=== PATIENT | male | born 1970 | race African-American/Black ===

== ENCOUNTER 2018-02-28 18:01 | Inpatient (IN) | payer MEDICAID, OTHER ==
[2018-02-28] MEDS: ONDANSETRON 4 MG INJ IV ×2 (18:34→22:33)
[2018-02-28] MEDS: SOD CHLORIDE 0.9% 1,000 ML IV (18:36)
[2018-02-28 18:44] LABS: ADD MAN DIFF? NO
[2018-02-28 18:50] LABS: BASOPHILS % 0.2 % (0.0-2.0); HEMATOCRIT 44.1 % (42.0-52.0); HEMOGLOBIN 13.9 g/dl (14.0-18.0); LYMPHOCYTES # 0.7 10^3/ul (0.8-2.9); LYMPHOCYTES % 6.7 % (15.0-51.0); MEAN CORPUSCULAR HEMOGLOBIN 24.5 pg (29.0-33.0); MEAN CORPUSCULAR HGB CONC 31.5 g/dl (32.0-37.0); MEAN CORPUSCULAR VOLUME 77.8 fl (82.0-101.0); MEAN PLATELET VOLUME 10.5 fl (7.4-10.4); MONOCYTE # 0.4 10^3/ul (0.3-0.9); MONOCYTES % 3.4 % (0.0-11.0); NEUTROPHIL # 9.8 10^3/ul (1.6-7.5); NEUTROPHILS % 89.3 % (39.0-77.0); PLATELET COUNT 288 10^3/UL (140-415); RED BLOOD COUNT 5.67 10^6/ul (4.70-6.10); RED CELL DISTRIBUTION WIDTH 13.5 % (11.5-14.5)
[2018-02-28 19:10] LABS: PARTIAL THROMBOPLASTIN TIME 24.6 Sec (25.0-35.0); PROTIME 12.2 Sec (11.9-14.9)
[2018-02-28 19:16] LABS: ANION GAP 18 (8-16); BLOOD UREA NITROGEN 15 mg/dl (7-20); CALCIUM 9.8 mg/dl (8.4-10.2); CARBON DIOXIDE 24 mmol/L (21-31); CHLORIDE 102 mmol/L (97-110); CREATININE 0.82 mg/dl (0.61-1.24); GLUCOSE 273 mg/dl (70-220); HDL CHOLESTEROL 52 mg/dl (27-67); POTASSIUM 4.1 mmol/L (3.5-5.1); SODIUM 140 mmol/L (135-144); TRIGLYCERIDES 80 mg/dl (0-149)
[2018-02-28 19:24] LABS: CHOL/HDL RATIO 6.2 RATIO; CHOLESTEROL 326 mg/dl (100-200); LDL CHOLESTEROL,CALCULATED 258 mg/dl
[2018-02-28 19:27] LABS: TROPONIN-I < 0.012 ng/ml (0.000-0.120)
[2018-02-28] MEDS ORDERED: ONDANSETRON 4 MG INJ IV (20:00)
[2018-02-28] MEDS ORDERED: ASPIRIN 81 MG TAB (20:54)
[2018-02-28] MEDS: ASPIRIN 81 MG TAB PO (20:57)
[2018-02-28] MEDS ORDERED: NACL 0.9% 3 ML SYG IV (21:30)
[2018-02-28] MEDS ORDERED: ACETAMINOPHEN 325 MG TAB PO (21:30)
[2018-02-28 21:37] LABS: ETHANOL < 10.0 mg/dl
[2018-02-28 22:16] LABS: THYROID STIMULATING HORMONE 0.386 MIU/L (0.465-4.680)
[2018-02-28] MEDS ORDERED: GLUCAGON 1 MG INJ IM (23:30)
[2018-02-28] MEDS ORDERED: GLUCOSE GEL 15 GRAM TUBE PO ×2 (23:30)
[2018-02-28] MEDS ORDERED: GLUCOSE GEL 15 GRAM TUBE BUCCAL (23:30)
[2018-02-28] MEDS ORDERED: DEXTROSE 50% 50 ML SYRINGE IV ×2 (23:30)
[2018-03-01] MEDS ORDERED: INSULIN ISOPHAN SC
[2018-03-01] MEDS: CALCIUM CARBONATE 500 MG CHEW TAB PO ×5 (00:22→21:35)
[2018-03-01] MEDS: MECLIZINE 25 MG TAB PO ×4 (00:23→21:15)
[2018-03-01] MEDS ORDERED: hydrALAzine 20 MG INJ IV (00:30)
[2018-03-01] MEDS: INSULIN ASP PROT/ASPART (70/30) PEN SC ×2 (00:34→21:00)
[2018-03-01] MEDS: ACCU-CHEK XX (02:00)
[2018-03-01] MEDS: SOD CHLORIDE 0.9% 500 ML IV (03:26)
[2018-03-01 03:29] LABS: ADD UMIC YES; UR ASCORBIC ACID NEGATIVE (NEGATIVE); UR BILIRUBIN (Dip) NEGATIVE (NEGATIVE); UR BLOOD (Dip) NEGATIVE (NEGATIVE); UR CLARITY CLEAR (CLEAR); UR COLOR YELLOW (YELLOW); UR GLUCOSE (Dip) 3+ mg/dL (NEGATIVE); UR KETONES (Dip) 2+ mg/dL (NEGATIVE); UR LEUKOCYTE ESTERASE (Dip) NEGATIVE Leu/ul (NEGATIVE); UR NITRITE (Dip) NEGATIVE (NEGATIVE); UR RBC 0 /HPF (0-5); UR SPECIFIC GRAVITY (Dip) 1.038 (1.003-1.030); UR TOTAL PROTEIN (Dip) 2+ mg/dl (NEGATIVE); UR UROBILINOGEN (Dip) NEGATIVE (NEGATIVE); UR WBC 0 /HPF (0-5)
[2018-03-01 03:42] LABS: AMPHETAMINE/METHAMPHETAMINE Negative (NEGATIVE); BARBITURATES Negative (NEGATIVE); BENZODIAZEPINES Negative (NEGATIVE); CANNABINOIDS Negative (NEGATIVE); COCAINE Negative (NEGATIVE); OPIATES Negative (NEGATIVE)
[2018-03-01 06:10] LABS: ADD MAN DIFF? NO
[2018-03-01 06:20] LABS: BASOPHILS % 0.4 % (0.0-2.0); EOSINOPHILS # 0.1 10^3/ul (0.0-0.5); EOSINOPHILS % 0.4 % (0.0-7.0); HEMATOCRIT 40.4 % (42.0-52.0); HEMOGLOBIN 12.8 g/dl (14.0-18.0); LYMPHOCYTES # 1.7 10^3/ul (0.8-2.9); LYMPHOCYTES % 14.8 % (15.0-51.0); MEAN CORPUSCULAR HEMOGLOBIN 24.8 pg (29.0-33.0); MEAN CORPUSCULAR HGB CONC 31.7 g/dl (32.0-37.0); MEAN CORPUSCULAR VOLUME 78.1 fl (82.0-101.0); MEAN PLATELET VOLUME 10.7 fl (7.4-10.4); MONOCYTE # 0.8 10^3/ul (0.3-0.9); MONOCYTES % 7.3 % (0.0-11.0); NEUTROPHIL # 8.5 10^3/ul (1.6-7.5); NEUTROPHILS % 76.7 % (39.0-77.0); PLATELET COUNT 287 10^3/UL (140-415); RED BLOOD COUNT 5.17 10^6/ul (4.70-6.10); RED CELL DISTRIBUTION WIDTH 13.4 % (11.5-14.5)
[2018-03-01 06:20] LABS: WHITE BLOOD COUNT 11.1 10^3/ul (4.8-10.8)
[2018-03-01 06:56] LABS: IRON 33 ug/dl (35-150)
[2018-03-01 07:00] LABS: FREE T4 (FREE THYROXINE) 1.14 ng/dl (0.64-1.79)
[2018-03-01 07:06] LABS: % IRON SATURATION 12 % SAT (22-52); TOTAL IRON BINDING CAPACITY 266 ug/dl (241-421)
[2018-03-01 07:10] LABS: ALANINE AMINOTRANSFERASE 18 IU/L (13-69); ALBUMIN 3.8 g/dl (3.3-4.9); ALBUMIN/GLOBULIN RATIO 1.05; ALKALINE PHOSPHATASE 91 IU/L (42-121); ANION GAP 14 (8-16); ASPARTATE AMINO TRANSFERASE 18 IU/L (15-46); BILIRUBIN,INDIRECT 0.6 mg/dl (0-1.1); BILIRUBIN,TOTAL 0.6 mg/dl (0.2-1.3); BLOOD UREA NITROGEN 16 mg/dl (7-20); CALCIUM 9.3 mg/dl (8.4-10.2); CARBON DIOXIDE 25 mmol/L (21-31); CHLORIDE 101 mmol/L (97-110); CREATININE 0.77 mg/dl (0.61-1.24); GLUCOSE 241 mg/dl (70-220); MAGNESIUM 1.7 mg/dl (1.7-2.5); SODIUM 136 mmol/L (135-144); TOTAL PROTEIN 7.4 g/dl (6.1-8.1)
[2018-03-01] MEDS: INSULIN ASPART [NOVOLOG] 3 ML PEN SC ×5 (08:18→21:00)
[2018-03-01 08:23] LABS: HEMOGLOBIN A1C > 14.0 % (0-5.9)
[2018-03-01 08:26] LABS: FREE T3 2.66 pg/ml (2.77-5.27)
[2018-03-01] MEDS: ATORVASTATIN 80 MG TAB PO (21:00)
[2018-03-01] MEDS: INSULIN GLARGINE [LANTus] (100 UNITS/ML) SYG SC (21:32)
[2018-03-02] MEDS: ACCU-CHEK XX (02:00)
[2018-03-02 06:14] LABS: ADD MAN DIFF? NO
[2018-03-02 06:21] LABS: BASOPHIL # 0.1 10^3/ul (0.0-0.1); BASOPHILS % 0.6 % (0.0-2.0); EOSINOPHILS # 0.2 10^3/ul (0.0-0.5); EOSINOPHILS % 2.5 % (0.0-7.0); HEMATOCRIT 41.8 % (42.0-52.0); HEMOGLOBIN 13.2 g/dl (14.0-18.0); LYMPHOCYTES # 2.5 10^3/ul (0.8-2.9); LYMPHOCYTES % 26.5 % (15.0-51.0); MEAN CORPUSCULAR HEMOGLOBIN 24.6 pg (29.0-33.0); MEAN CORPUSCULAR HGB CONC 31.6 g/dl (32.0-37.0); MEAN CORPUSCULAR VOLUME 77.8 fl (82.0-101.0); MEAN PLATELET VOLUME 10.4 fl (7.4-10.4); MONOCYTE # 0.7 10^3/ul (0.3-0.9); MONOCYTES % 7.2 % (0.0-11.0); NEUTROPHIL # 5.9 10^3/ul (1.6-7.5); NEUTROPHILS % 62.9 % (39.0-77.0); PLATELET COUNT 262 10^3/UL (140-415); RED BLOOD COUNT 5.37 10^6/ul (4.70-6.10); RED CELL DISTRIBUTION WIDTH 13.5 % (11.5-14.5)
[2018-03-02 06:21] LABS: WHITE BLOOD COUNT 9.4 10^3/ul (4.8-10.8)
[2018-03-02 06:54] LABS: ALBUMIN 3.7 g/dl (3.3-4.9); ANION GAP 13 (8-16); BLOOD UREA NITROGEN 18 mg/dl (7-20); CALCIUM 9.3 mg/dl (8.4-10.2); CARBON DIOXIDE 26 mmol/L (21-31); CHLORIDE 103 mmol/L (97-110); CREATININE 0.88 mg/dl (0.61-1.24); GLUCOSE 264 mg/dl (70-220); MAGNESIUM 1.7 mg/dl (1.7-2.5); PHOSPHORUS 3.9 mg/dl (2.5-4.9); POTASSIUM 4.1 mmol/L (3.5-5.1); SODIUM 138 mmol/L (135-144)
[2018-03-02] MEDS: INSULIN ASPART [NOVOLOG] 3 ML PEN SC ×7 (08:10→20:46)
[2018-03-02] MEDS: DOCUSATE SODIUM 100 MG CAP PO (08:20)
[2018-03-02] MEDS: MECLIZINE 25 MG TAB PO ×3 (08:20→12:21)
[2018-03-02] MEDS: LORAZEPAM 2 MG INJ IV (12:30)
[2018-03-02] MEDS: IODIXANOL LOCM 100 ML BTL (18:16)
[2018-03-02] MEDS: SOD CHLORIDE 0.9% 100 ML (18:16)
[2018-03-02] MEDS: CALCIUM CARBONATE 500 MG CHEW TAB PO ×2 (19:08→21:26)
[2018-03-02] MEDS: POLYETHYLENE GLYCOL 17 GM PACKET PO (19:08)
[2018-03-02] MEDS: FISH OIL 1,000 MG CAP PO (20:29)
[2018-03-02] MEDS: INSULIN GLARGINE [LANTus] (100 UNITS/ML) SYG SC (20:36)
[2018-03-02] MEDS ORDERED: INSULIN ASP PROT/ASPART (70/30) PEN SC (21:00)
[2018-03-03 05:31] LABS: ADD MAN DIFF? NO
[2018-03-03 05:32] LABS: WHITE BLOOD COUNT 8.9 10^3/ul (4.8-10.8)
[2018-03-03 05:32] LABS: BASOPHIL # 0.1 10^3/ul (0.0-0.1); BASOPHILS % 0.8 % (0.0-2.0); EOSINOPHILS # 0.3 10^3/ul (0.0-0.5); EOSINOPHILS % 2.9 % (0.0-7.0); HEMATOCRIT 40.2 % (42.0-52.0); HEMOGLOBIN 12.9 g/dl (14.0-18.0); LYMPHOCYTES # 2.3 10^3/ul (0.8-2.9); MEAN CORPUSCULAR HEMOGLOBIN 24.5 pg (29.0-33.0); MEAN CORPUSCULAR HGB CONC 32.1 g/dl (32.0-37.0); MEAN CORPUSCULAR VOLUME 76.4 fl (82.0-101.0); MEAN PLATELET VOLUME 10.3 fl (7.4-10.4); MONOCYTE # 0.6 10^3/ul (0.3-0.9); MONOCYTES % 6.8 % (0.0-11.0); NEUTROPHIL # 5.6 10^3/ul (1.6-7.5); NEUTROPHILS % 63.3 % (39.0-77.0); PLATELET COUNT 240 10^3/UL (140-415); RED BLOOD COUNT 5.26 10^6/ul (4.70-6.10); RED CELL DISTRIBUTION WIDTH 13.6 % (11.5-14.5)
[2018-03-03 06:26] LABS: ANION GAP 12 (8-16)
[2018-03-03 06:30] LABS: BLOOD UREA NITROGEN 15 mg/dl (7-20); CALCIUM 9.2 mg/dl (8.4-10.2); CARBON DIOXIDE 27 mmol/L (21-31); CHLORIDE 101 mmol/L (97-110); CREATININE 0.77 mg/dl (0.61-1.24); GLUCOSE 263 mg/dl (70-220); PHOSPHORUS 4.2 mg/dl (2.5-4.9); POTASSIUM 3.9 mmol/L (3.5-5.1); SODIUM 136 mmol/L (135-144)
[2018-03-03 06:31] LABS: ALBUMIN 3.5 g/dl (3.3-4.9); MAGNESIUM 1.7 mg/dl (1.7-2.5)
[2018-03-03] MEDS: INSULIN ASPART [NOVOLOG] 3 ML PEN SC ×7 (07:49→20:36)
[2018-03-03] MEDS: MECLIZINE 25 MG TAB PO (08:22)
[2018-03-03] MEDS: CALCIUM CARBONATE 500 MG CHEW TAB PO ×2 (08:22→18:04)
[2018-03-03] MEDS: FERROUS SULFATE (EC) 325 MG TAB PO (08:22)
[2018-03-03] MEDS: ASPIRIN 81 MG TAB PO (08:22)
[2018-03-03] MEDS: FISH OIL 1,000 MG CAP PO ×2 (08:23→20:31)
[2018-03-03] MEDS ORDERED: CHOLECALCIFEROL 2,000 UNIT CAP PO (09:00)
[2018-03-03 09:47] LABS: HIV 1&2 ANTIBODY NEGATIVE (NEGATIVE)
[2018-03-03] MEDS: ERGOCALCIFEROL 50,000 UNIT CAP PO (11:32)
[2018-03-03] MEDS: SENNA/DOCUSATE NA (8.6MG/50MG) TAB PO ×2 (13:15→20:31)
[2018-03-03 15:39] LABS: RAPID PLASMA REAGIN NONREACTIVE (NR)
[2018-03-03] MEDS: INSULIN GLARGINE [LANTus] (100 UNITS/ML) SYG SC (20:36)
[2018-03-04 06:04] LABS: ADD MAN DIFF? NO
[2018-03-04 06:07] LABS: BASOPHIL # 0.1 10^3/ul (0.0-0.1); BASOPHILS % 0.6 % (0.0-2.0); EOSINOPHILS # 0.3 10^3/ul (0.0-0.5); EOSINOPHILS % 3.8 % (0.0-7.0); HEMATOCRIT 40.3 % (42.0-52.0); HEMOGLOBIN 12.9 g/dl (14.0-18.0); LYMPHOCYTES # 2.1 10^3/ul (0.8-2.9); LYMPHOCYTES % 23.7 % (15.0-51.0); MEAN CORPUSCULAR HEMOGLOBIN 24.9 pg (29.0-33.0); MEAN CORPUSCULAR VOLUME 77.8 fl (82.0-101.0); MEAN PLATELET VOLUME 10.3 fl (7.4-10.4); MONOCYTE # 0.5 10^3/ul (0.3-0.9); NEUTROPHIL # 5.9 10^3/ul (1.6-7.5); NEUTROPHILS % 65.6 % (39.0-77.0); PLATELET COUNT 233 10^3/UL (140-415); RED BLOOD COUNT 5.18 10^6/ul (4.70-6.10); RED CELL DISTRIBUTION WIDTH 13.2 % (11.5-14.5)
[2018-03-04 06:52] LABS: ALBUMIN 3.5 g/dl (3.3-4.9); ANION GAP 14 (8-16); BLOOD UREA NITROGEN 18 mg/dl (7-20); CALCIUM 9.3 mg/dl (8.4-10.2); CARBON DIOXIDE 27 mmol/L (21-31); CHLORIDE 100 mmol/L (97-110); CREATININE 0.89 mg/dl (0.61-1.24); GLUCOSE 220 mg/dl (70-220); MAGNESIUM 1.7 mg/dl (1.7-2.5); PHOSPHORUS 4.9 mg/dl (2.5-4.9); SODIUM 137 mmol/L (135-144)
[2018-03-04] MEDS: INSULIN ASPART [NOVOLOG] 3 ML PEN SC ×7 (08:28→21:00)
[2018-03-04] MEDS: FERROUS SULFATE (EC) 325 MG TAB PO (08:30)
[2018-03-04] MEDS: ASPIRIN 81 MG TAB PO (08:30)
[2018-03-04] MEDS: AMLODIPINE 5 MG TAB PO (08:30)
[2018-03-04] MEDS: FISH OIL 1,000 MG CAP PO (08:30)
[2018-03-04] MEDS: LISINOPRIL 10 MG TAB PO (08:31)
[2018-03-04] MEDS: BISACODYL (EC) 5 MG TAB PO (08:34)
[2018-03-04] MEDS: SENNA/DOCUSATE NA (8.6MG/50MG) TAB PO ×2 (08:35→21:00)
[2018-03-04] MEDS ORDERED: CHOLECALCIFEROL 2,000 UNIT CAP PO (09:00)
[2018-03-04] MEDS: MECLIZINE 25 MG TAB PO (11:26)
[2018-03-04] MEDS: LINAGLIPTIN 5 MG TABLET PO (16:00)
[2018-03-04] MEDS: metFORMIN 500 MG TAB PO (17:46)
[2018-03-04] MEDS: ATORVASTATIN 80 MG TAB PO ×2 (20:28→20:39)
[2018-03-04] MEDS: INSULIN GLARGINE [LANTus] (100 UNITS/ML) SYG SC (20:30)
[2018-03-05 07:06] LABS: ADD MAN DIFF? NO
[2018-03-05 07:11] LABS: BASOPHIL # 0.1 10^3/ul (0.0-0.1); BASOPHILS % 0.7 % (0.0-2.0); EOSINOPHILS # 0.3 10^3/ul (0.0-0.5); EOSINOPHILS % 3.8 % (0.0-7.0); HEMOGLOBIN 12.7 g/dl (14.0-18.0); LYMPHOCYTES # 2.4 10^3/ul (0.8-2.9); LYMPHOCYTES % 27.1 % (15.0-51.0); MEAN CORPUSCULAR HEMOGLOBIN 24.6 pg (29.0-33.0); MEAN CORPUSCULAR HGB CONC 31.8 g/dl (32.0-37.0); MEAN CORPUSCULAR VOLUME 77.5 fl (82.0-101.0); MEAN PLATELET VOLUME 10.6 fl (7.4-10.4); MONOCYTE # 0.6 10^3/ul (0.3-0.9); MONOCYTES % 6.5 % (0.0-11.0); NEUTROPHIL # 5.6 10^3/ul (1.6-7.5); NEUTROPHILS % 61.6 % (39.0-77.0); PLATELET COUNT 246 10^3/UL (140-415); RED BLOOD COUNT 5.16 10^6/ul (4.70-6.10); RED CELL DISTRIBUTION WIDTH 13.7 % (11.5-14.5)
[2018-03-05 07:50] LABS: ANION GAP 16 (8-16); BLOOD UREA NITROGEN 15 mg/dl (7-20); CALCIUM 9.3 mg/dl (8.4-10.2); CARBON DIOXIDE 25 mmol/L (21-31); CHLORIDE 100 mmol/L (97-110); CREATININE 0.86 mg/dl (0.61-1.24); GLUCOSE 183 mg/dl (70-220); MAGNESIUM 1.7 mg/dl (1.7-2.5); SODIUM 137 mmol/L (135-144)
[2018-03-05] MEDS: ASPIRIN 81 MG TAB PO (07:58)
[2018-03-05] MEDS: FERROUS SULFATE (EC) 325 MG TAB PO (07:58)
[2018-03-05] MEDS: metFORMIN 500 MG TAB PO (07:58)
[2018-03-05] MEDS: SENNA/DOCUSATE NA (8.6MG/50MG) TAB PO (07:59)
[2018-03-05] MEDS: LINAGLIPTIN 5 MG TABLET PO (08:00)
[2018-03-05] MEDS: INSULIN ASPART [NOVOLOG] 3 ML PEN SC ×6 (08:05→18:08)
[2018-03-05] MEDS: LISINOPRIL 20 MG TAB PO (09:00)
[2018-03-05] MEDS ORDERED: LISINOPRIL 10 MG TAB PO (09:00)
[2018-03-05] MEDS: FISH OIL 1,000 MG CAP PO (10:56)
[2018-03-05 18:31] LABS: HOMOCYSTEINE - CARDIOVASCULAR 9.2 umol/L (<11.4)
[2018-03-06] MEDS ORDERED: LISINOPRIL 10 MG TAB PO (09:00)
[2018-03-10] MEDS ORDERED: ERGOCALCIFEROL 50,000 UNIT CAP PO (15:00)
== END 2018-03-05 18:50 | DRG 66 ==
LOC: E/R 18:01 → 2NE 03-03 17:09 → 6WM 19:53
DX: I63.8 Other cerebral infarction (principal); I10 Essential (primary) hypertension; E11.9 Type 2 diabetes mellitus without complications; E55.9 Vitamin D deficiency, unspecified
CPT/HCPCS: 36415; 70450; 70496; 70498; 70551; 71045; 73620; 80048; 80053; 80061; 80069; 80307; 81001; 81240; 82306; 82607; 82652; 82728; 82962; 83036; 83090; 83540; 83735; 83890; 84100; 84439; 84443; 84481; 84484; 85025; 85300; 85302; 85305; 85610; 85613; 85730; 86147; 86592; 86703; 92610; 93005; 93306; 93880; 96374; 97110; 97116; 97163; 97165; 97530; 97535; 99285-25

== ENCOUNTER 2018-03-05 19:58 | Inpatient (IN) | payer MEDICAID ==
[2018-03-05] MEDS ORDERED: ACETAMINOPHEN 325 MG TAB PO (21:30)
[2018-03-05] MEDS ORDERED: CALCIUM CARBONATE 500 MG CHEW TAB PO (21:30)
[2018-03-05] MEDS ORDERED: BISACODYL (EC) 5 MG TAB PO (21:30)
[2018-03-05] MEDS ORDERED: DEXTROSE 50% 50 ML SYRINGE IV ×2 (22:00)
[2018-03-05] MEDS ORDERED: GLUCOSE GEL 15 GRAM TUBE BUCCAL (22:00)
[2018-03-05] MEDS: INSULIN ASPART [NOVOLOG] 3 ML PEN SC (22:00)
[2018-03-05] MEDS ORDERED: GLUCAGON 1 MG INJ IM (22:00)
[2018-03-05] MEDS ORDERED: POLYETHYLENE GLYCOL 17 GM PACKET PO (22:00)
[2018-03-05] MEDS ORDERED: ONDANSETRON 4 MG INJ IV (22:00)
[2018-03-05] MEDS ORDERED: GLUCOSE GEL 15 GRAM TUBE PO ×2 (22:00)
[2018-03-05] MEDS: FISH OIL 1,000 MG CAP PO (22:15)
[2018-03-05] MEDS: INSULIN GLARGINE [LANTus] (100 UNITS/ML) SYG SC (23:18)
[2018-03-06 06:52] LABS: ADD MAN DIFF? NO
[2018-03-06 06:56] LABS: BASOPHIL # 0.1 10^3/ul (0.0-0.1); BASOPHILS % 0.6 % (0.0-2.0); EOSINOPHILS # 0.3 10^3/ul (0.0-0.5); EOSINOPHILS % 3.1 % (0.0-7.0); HEMATOCRIT 39.6 % (42.0-52.0); HEMOGLOBIN 12.6 g/dl (14.0-18.0); LYMPHOCYTES # 2.2 10^3/ul (0.8-2.9); LYMPHOCYTES % 23.4 % (15.0-51.0); MEAN CORPUSCULAR HEMOGLOBIN 25.3 pg (29.0-33.0); MEAN CORPUSCULAR HGB CONC 31.8 g/dl (32.0-37.0); MEAN CORPUSCULAR VOLUME 79.5 fl (82.0-101.0); MEAN PLATELET VOLUME 10.4 fl (7.4-10.4); MONOCYTE # 0.7 10^3/ul (0.3-0.9); MONOCYTES % 7.1 % (0.0-11.0); NEUTROPHIL # 6.2 10^3/ul (1.6-7.5); NEUTROPHILS % 65.3 % (39.0-77.0); PLATELET COUNT 233 10^3/UL (140-415); RED BLOOD COUNT 4.98 10^6/ul (4.70-6.10); RED CELL DISTRIBUTION WIDTH 13.5 % (11.5-14.5)
[2018-03-06 06:56] LABS: WHITE BLOOD COUNT 9.4 10^3/ul (4.8-10.8)
[2018-03-06] MEDS: INSULIN ASPART [NOVOLOG] 3 ML PEN SC ×7 (07:35→21:00)
[2018-03-06 08:08] LABS: ALANINE AMINOTRANSFERASE 25 IU/L (13-69); ALBUMIN 3.5 g/dl (3.3-4.9); ALBUMIN/GLOBULIN RATIO 0.92; ALKALINE PHOSPHATASE 84 IU/L (42-121); ANION GAP 16 (8-16); ASPARTATE AMINO TRANSFERASE 19 IU/L (15-46); BILIRUBIN,INDIRECT 0.5 mg/dl (0-1.1); BILIRUBIN,TOTAL 0.5 mg/dl (0.2-1.3); BLOOD UREA NITROGEN 15 mg/dl (7-20); CALCIUM 9.4 mg/dl (8.4-10.2); CARBON DIOXIDE 29 mmol/L (21-31); CHLORIDE 100 mmol/L (97-110); GLUCOSE 155 mg/dl (70-220); POTASSIUM 4.7 mmol/L (3.5-5.1); SODIUM 140 mmol/L (135-144); TOTAL PROTEIN 7.3 g/dl (6.1-8.1)
[2018-03-06] MEDS: FISH OIL 1,000 MG CAP PO ×2 (08:46→21:14)
[2018-03-06] MEDS: ASPIRIN 81 MG TAB PO (08:46)
[2018-03-06] MEDS: FERROUS SULFATE (EC) 325 MG TAB PO (08:46)
[2018-03-06] MEDS ORDERED: LIDOCAINE 5% PATCH TD (11:30)
[2018-03-06] MEDS: LISINOPRIL 10 MG TAB PO (14:30)
[2018-03-06] MEDS: INSULIN GLARGINE [LANTus] (100 UNITS/ML) SYG SC (21:35)
[2018-03-06 23:44] LABS: ADD UMIC YES; UR ASCORBIC ACID NEGATIVE (NEGATIVE); UR BILIRUBIN (Dip) NEGATIVE (NEGATIVE); UR BLOOD (Dip) NEGATIVE (NEGATIVE); UR CLARITY CLEAR (CLEAR); UR COLOR YELLOW (YELLOW); UR GLUCOSE (Dip) 1+ mg/dL (NEGATIVE); UR KETONES (Dip) NEGATIVE (NEGATIVE); UR LEUKOCYTE ESTERASE (Dip) NEGATIVE Leu/ul (NEGATIVE); UR NITRITE (Dip) NEGATIVE (NEGATIVE); UR RBC 0 /HPF (0-5); UR SPECIFIC GRAVITY (Dip) 1.016 (1.003-1.030); UR TOTAL PROTEIN (Dip) 1+ mg/dl (NEGATIVE); UR UROBILINOGEN (Dip) 1+ mg/dL (NEGATIVE); UR WBC 0 /HPF (0-5)
[2018-03-07 07:21] LABS: ANION GAP 13 (8-16); BLOOD UREA NITROGEN 16 mg/dl (7-20); CALCIUM 9.2 mg/dl (8.4-10.2); CARBON DIOXIDE 26 mmol/L (21-31); CHLORIDE 104 mmol/L (97-110); CHOL/HDL RATIO 6.6 RATIO; CHOLESTEROL 227 mg/dl (100-200); CREATININE 0.97 mg/dl (0.61-1.24); GLUCOSE 142 mg/dl (70-220); HDL CHOLESTEROL 34 mg/dl (27-67); LDL CHOLESTEROL,CALCULATED 177 mg/dl; POTASSIUM 4.4 mmol/L (3.5-5.1); SODIUM 139 mmol/L (135-144); TRIGLYCERIDES 80 mg/dl (0-149)
[2018-03-07] MEDS: INSULIN ASPART [NOVOLOG] 3 ML PEN SC ×7 (07:35→20:21)
[2018-03-07] MEDS: ASPIRIN 81 MG TAB PO (08:23)
[2018-03-07] MEDS: LISINOPRIL 10 MG TAB PO (08:24)
[2018-03-07] MEDS: FISH OIL 1,000 MG CAP PO ×2 (08:24→20:21)
[2018-03-07] MEDS: FERROUS SULFATE (EC) 325 MG TAB PO (08:24)
[2018-03-07] MEDS: MUPIROCIN 2% 22 GM OINT TOP ×2 (13:42→21:16)
[2018-03-07] MEDS: INSULIN GLARGINE [LANTus] (100 UNITS/ML) SYG SC (20:26)
[2018-03-07] MEDS ORDERED: PATIENT'S OWN MEDICATION PO (21:00)
[2018-03-08] MEDS: INSULIN ASPART [NOVOLOG] 3 ML PEN SC ×7 (08:07→20:42)
[2018-03-08] MEDS: FISH OIL 1,000 MG CAP PO ×2 (08:34→20:34)
[2018-03-08] MEDS: ASPIRIN 81 MG TAB PO (08:34)
[2018-03-08] MEDS: ERGOCALCIFEROL 50,000 UNIT CAP PO (08:34)
[2018-03-08] MEDS: MUPIROCIN 2% 22 GM OINT TOP ×2 (08:34→20:43)
[2018-03-08] MEDS: FERROUS SULFATE (EC) 325 MG TAB PO (08:36)
[2018-03-08] MEDS: LISINOPRIL 10 MG TAB PO (08:37)
[2018-03-08] MEDS: INSULIN GLARGINE [LANTus] (100 UNITS/ML) SYG SC (20:42)
[2018-03-09] MEDS: INSULIN ASPART [NOVOLOG] 3 ML PEN SC ×7 (07:53→20:40)
[2018-03-09] MEDS: FISH OIL 1,000 MG CAP PO ×2 (08:35→20:30)
[2018-03-09] MEDS: ASPIRIN 81 MG TAB PO (08:35)
[2018-03-09] MEDS: FERROUS SULFATE (EC) 325 MG TAB PO (08:41)
[2018-03-09] MEDS: LISINOPRIL 10 MG TAB PO (08:42)
[2018-03-09] MEDS: MUPIROCIN 2% 22 GM OINT TOP ×2 (08:42→21:00)
[2018-03-09] MEDS: INSULIN GLARGINE [LANTus] (100 UNITS/ML) SYG SC (20:40)
[2018-03-10] MEDS: INSULIN ASPART [NOVOLOG] 3 ML PEN SC ×7 (07:35→20:26)
[2018-03-10] MEDS: FISH OIL 1,000 MG CAP PO ×2 (08:33→20:26)
[2018-03-10] MEDS: ASPIRIN 81 MG TAB PO (08:33)
[2018-03-10] MEDS: FERROUS SULFATE (EC) 325 MG TAB PO (08:33)
[2018-03-10] MEDS: LISINOPRIL 10 MG TAB PO (08:34)
[2018-03-10] MEDS: MUPIROCIN 2% 22 GM OINT TOP ×2 (08:34→20:32)
[2018-03-10] MEDS: INSULIN GLARGINE [LANTus] (100 UNITS/ML) SYG SC (20:30)
[2018-03-11] MEDS: LORAZEPAM 2 MG INJ IV (02:31)
[2018-03-11] MEDS ORDERED: IOHEXOL 300MG/ML 150 ML BTL (03:13)
[2018-03-11] MEDS ORDERED: SOD CHLORIDE 0.9% 100 ML (03:13)
== END 2018-03-11 04:14 | disposition short-term general hospital (02) | DRG 57 ==
LOC: VRC 19:58
PROVIDERS: Physical Medicine & Rehabilitation
PROC: F07Z5ZZ Bed Mobility Treatment (ICD-10-PCS; principal; 2018-03-05)
PROC: F08Z2ZZ Grooming/Personal Hygiene Treatment (ICD-10-PCS; 2018-03-05)
PROC: F06Z6ZZ Communicative/Cognitive Integration Skills Treatment (ICD-10-PCS; 2018-03-05)
DX: I69.391 Dysphagia following cerebral infarction (principal); I69.322 Dysarthria following cerebral infarction; R13.10 Dysphagia, unspecified; I10 Essential (primary) hypertension; E11.9 Type 2 diabetes mellitus without complications; E55.9 Vitamin D deficiency, unspecified; E78.00 Pure hypercholesterolemia, unspecified; Z91.14 Patient's other noncompliance with medication regimen; D50.9 Iron deficiency anemia, unspecified
CPT/HCPCS: 71275; 80048; 80053; 80061; 81001; 82962; 85025; 87081; 87086; 92507; 92523; 93005; 97110; 97112; 97116; 97163; 97167; 97530; 97535; 97542

== ENCOUNTER 2018-03-11 05:04 | Inpatient (IN) | payer MEDICAID ==
[2018-03-11] MEDS ORDERED: HEPARIN 1000 UNITS/ML 10 ML INJ IV ×5 (05:30→06:30)
[2018-03-11] MEDS ORDERED: IPRATROPIUM (NEB) 0.5 MG/2.5 ML AMP NEB (06:00)
[2018-03-11] MEDS ORDERED: POLYETHYLENE GLYCOL 17 GM PACKET PO (06:00)
[2018-03-11] MEDS: PANTOPRAZOLE 40 MG INJ IV (06:00)
[2018-03-11] MEDS ORDERED: ONDANSETRON 4 MG INJ IV (06:00)
[2018-03-11 06:08] LABS: ADD MAN DIFF? NO
[2018-03-11 06:12] LABS: WHITE BLOOD COUNT 9.5 10^3/ul (4.8-10.8)
[2018-03-11 06:12] LABS: BASOPHIL # 0.1 10^3/ul (0.0-0.1); BASOPHILS % 0.5 % (0.0-2.0); EOSINOPHILS # 0.2 10^3/ul (0.0-0.5); EOSINOPHILS % 2.5 % (0.0-7.0); HEMATOCRIT 39.5 % (42.0-52.0); HEMOGLOBIN 12.4 g/dl (14.0-18.0); LYMPHOCYTES # 1.9 10^3/ul (0.8-2.9); LYMPHOCYTES % 19.5 % (15.0-51.0); MEAN CORPUSCULAR HEMOGLOBIN 24.4 pg (29.0-33.0); MEAN CORPUSCULAR HGB CONC 31.4 g/dl (32.0-37.0); MEAN CORPUSCULAR VOLUME 77.8 fl (82.0-101.0); MEAN PLATELET VOLUME 10.1 fl (7.4-10.4); MONOCYTE # 0.7 10^3/ul (0.3-0.9); MONOCYTES % 7.3 % (0.0-11.0); NEUTROPHIL # 6.7 10^3/ul (1.6-7.5); NEUTROPHILS % 69.9 % (39.0-77.0); PLATELET COUNT 251 10^3/UL (140-415); RED BLOOD COUNT 5.08 10^6/ul (4.70-6.10); RED CELL DISTRIBUTION WIDTH 13.2 % (11.5-14.5)
[2018-03-11 06:32] LABS: ANION GAP 13 (8-16); BLOOD UREA NITROGEN 13 mg/dl (7-20); CARBON DIOXIDE 26 mmol/L (21-31); CHLORIDE 103 mmol/L (97-110); GLUCOSE 181 mg/dl (70-220); POTASSIUM 4.4 mmol/L (3.5-5.1); SODIUM 138 mmol/L (135-144)
[2018-03-11 06:52] LABS: INR 0.91; PARTIAL THROMBOPLASTIN TIME 32.9 Sec (25.0-35.0); PROTIME 12.3 Sec (11.9-14.9)
[2018-03-11] MEDS: HEPARIN 25000 UNITS/250 ML 250 ML IV (07:33)
[2018-03-11 07:45] LABS: TROPONIN-I 0.546 ng/ml (0.000-0.120)
[2018-03-11] MEDS ORDERED: GLUCOSE GEL 15 GRAM TUBE BUCCAL (08:30)
[2018-03-11] MEDS ORDERED: GLUCAGON 1 MG INJ IM (08:30)
[2018-03-11] MEDS ORDERED: GLUCOSE GEL 15 GRAM TUBE PO ×2 (08:30)
[2018-03-11] MEDS ORDERED: DEXTROSE 50% 50 ML SYRINGE IV ×2 (08:30)
[2018-03-11] MEDS: INSULIN ASPART [NOVOLOG] 3 ML PEN SC ×6 (09:53→21:00)
[2018-03-11] MEDS: FERROUS SULFATE (EC) 325 MG TAB PO (09:54)
[2018-03-11] MEDS: FISH OIL 1,000 MG CAP PO ×2 (09:54→22:37)
[2018-03-11 12:08] LABS: CREATINE KINASE 123 IU/L (23-200)
[2018-03-11 12:21] LABS: CK INDEX 1.9; CK-MB 2.37 ng/ml (0.0-2.4)
[2018-03-11 12:28] LABS: TROPONIN-I 0.395 ng/ml (0.000-0.120)
[2018-03-11] MEDS: HEPARIN 1000 UNITS/ML 10 ML INJ IV (16:00)
[2018-03-11 18:59] LABS: CREATINE KINASE 126 IU/L (23-200)
[2018-03-11 19:11] LABS: CK INDEX 1.8; CK-MB 2.23 ng/ml (0.0-2.4)
[2018-03-11 19:12] LABS: TROPONIN-I 0.324 ng/ml (0.000-0.120)
[2018-03-11] MEDS: ATORVASTATIN 20 MG TAB PO (20:25)
[2018-03-11] MEDS: INSULIN GLARGINE [LANTus] (100 UNITS/ML) SYG SC (20:57)
[2018-03-11] MEDS ORDERED: FISH OIL 1,000 MG CAP PO (21:00)
[2018-03-11] MEDS: SPECIAL NON-STANDARD MEDICATION PO (21:00)
[2018-03-11 22:46] LABS: PARTIAL THROMBOPLASTIN TIME 32.3 Sec (25.0-35.0)
[2018-03-12 01:13] LABS: PARTIAL THROMBOPLASTIN TIME 32.8 Sec (25.0-35.0)
[2018-03-12] MEDS: HEPARIN 1000 UNITS/ML 10 ML INJ IV (01:37)
[2018-03-12] MEDS: ACCUCHECK AT 2AM (Patients on SS coverage) XX ×2 (02:05→23:58)
[2018-03-12] MEDS: PANTOPRAZOLE 40 MG INJ IV (05:38)
[2018-03-12] MEDS: INSULIN ASPART [NOVOLOG] 3 ML PEN SC ×7 (07:35→22:12)
[2018-03-12] MEDS: FERROUS SULFATE (EC) 325 MG TAB PO (08:08)
[2018-03-12] MEDS: FISH OIL 1,000 MG CAP PO ×2 (08:08→22:07)
[2018-03-12] MEDS ORDERED: FISH OIL 1,000 MG CAP PO (09:00)
[2018-03-12] MEDS ORDERED: HYDROCORTISONE 0.5% 28.35 GM OINT TOP (10:30)
[2018-03-12 10:34] LABS: ADD MAN DIFF? NO
[2018-03-12 10:41] LABS: BASOPHILS % 0.4 % (0.0-2.0); EOSINOPHILS # 0.3 10^3/ul (0.0-0.5); HEMATOCRIT 41.9 % (42.0-52.0); HEMOGLOBIN 13.2 g/dl (14.0-18.0); LYMPHOCYTES # 1.4 10^3/ul (0.8-2.9); LYMPHOCYTES % 17.7 % (15.0-51.0); MEAN CORPUSCULAR HEMOGLOBIN 24.6 pg (29.0-33.0); MEAN CORPUSCULAR HGB CONC 31.5 g/dl (32.0-37.0); MEAN CORPUSCULAR VOLUME 78.2 fl (82.0-101.0); MEAN PLATELET VOLUME 10.1 fl (7.4-10.4); MONOCYTE # 0.5 10^3/ul (0.3-0.9); MONOCYTES % 6.7 % (0.0-11.0); NEUTROPHIL # 5.7 10^3/ul (1.6-7.5); NEUTROPHILS % 70.8 % (39.0-77.0); PLATELET COUNT 279 10^3/UL (140-415); RED BLOOD COUNT 5.36 10^6/ul (4.70-6.10); RED CELL DISTRIBUTION WIDTH 13.4 % (11.5-14.5)
[2018-03-12 10:41] LABS: WHITE BLOOD COUNT 8.1 10^3/ul (4.8-10.8)
[2018-03-12 11:00] LABS: ANION GAP 13 (8-16); BLOOD UREA NITROGEN 15 mg/dl (7-20); CALCIUM 9.4 mg/dl (8.4-10.2); CARBON DIOXIDE 30 mmol/L (21-31); CHLORIDE 101 mmol/L (97-110); CREATININE 1.14 mg/dl (0.61-1.24); GLUCOSE 181 mg/dl (70-220); SODIUM 139 mmol/L (135-144)
[2018-03-12 11:25] LABS: PARTIAL THROMBOPLASTIN TIME 79.4 Sec (25.0-35.0)
[2018-03-12 16:45] LABS: PARTIAL THROMBOPLASTIN TIME 75.1 Sec (25.0-35.0)
[2018-03-12] MEDS: HEPARIN 25000 UNITS/250 ML 250 ML IV (16:52)
[2018-03-12] MEDS: ATORVASTATIN 20 MG TAB PO (22:09)
[2018-03-12] MEDS: INSULIN GLARGINE [LANTus] (100 UNITS/ML) SYG SC (22:19)
[2018-03-12] MEDS: HYDROCORTISONE 0.5% 28.35 GM OINT TOP (23:58)
[2018-03-13] MEDS: HEPARIN 25000 UNITS/250 ML 250 ML IV ×2 (04:49→18:16)
[2018-03-13] MEDS: PANTOPRAZOLE (EC) 40 MG TAB PO (04:49)
[2018-03-13 05:40] LABS: ADD MAN DIFF? NO
[2018-03-13 05:41] LABS: WHITE BLOOD COUNT 8.5 10^3/ul (4.8-10.8)
[2018-03-13 05:41] LABS: BASOPHILS % 0.4 % (0.0-2.0); EOSINOPHILS # 0.5 10^3/ul (0.0-0.5); EOSINOPHILS % 5.7 % (0.0-7.0); HEMATOCRIT 38.3 % (42.0-52.0); HEMOGLOBIN 12.1 g/dl (14.0-18.0); LYMPHOCYTES % 23.4 % (15.0-51.0); MEAN CORPUSCULAR HEMOGLOBIN 24.7 pg (29.0-33.0); MEAN CORPUSCULAR HGB CONC 31.6 g/dl (32.0-37.0); MEAN CORPUSCULAR VOLUME 78.3 fl (82.0-101.0); MEAN PLATELET VOLUME 9.9 fl (7.4-10.4); MONOCYTE # 0.7 10^3/ul (0.3-0.9); MONOCYTES % 7.8 % (0.0-11.0); NEUTROPHIL # 5.3 10^3/ul (1.6-7.5); NEUTROPHILS % 62.3 % (39.0-77.0); PLATELET COUNT 269 10^3/UL (140-415); RED BLOOD COUNT 4.89 10^6/ul (4.70-6.10); RED CELL DISTRIBUTION WIDTH 13.4 % (11.5-14.5)
[2018-03-13 06:16] LABS: PARTIAL THROMBOPLASTIN TIME 81.3 Sec (25.0-35.0)
[2018-03-13 06:19] LABS: ANION GAP 12 (8-16); BLOOD UREA NITROGEN 14 mg/dl (7-20); CARBON DIOXIDE 29 mmol/L (21-31); CHLORIDE 103 mmol/L (97-110); CREATININE 1.16 mg/dl (0.61-1.24); GLUCOSE 114 mg/dl (70-220); POTASSIUM 4.5 mmol/L (3.5-5.1); SODIUM 139 mmol/L (135-144)
[2018-03-13] MEDS: INSULIN ASPART [NOVOLOG] 3 ML PEN SC ×7 (07:41→21:00)
[2018-03-13] MEDS: HYDROCORTISONE 0.5% 28.35 GM OINT TOP ×2 (07:44→21:36)
[2018-03-13] MEDS: FERROUS SULFATE (EC) 325 MG TAB PO (08:12)
[2018-03-13] MEDS: FISH OIL 1,000 MG CAP PO ×2 (08:12→21:35)
[2018-03-13] MEDS ORDERED: VITAMIN A & D 5 GM OINT PACKET TOP (17:27)
[2018-03-13] MEDS: ATORVASTATIN 20 MG TAB PO (21:00)
[2018-03-13] MEDS: INSULIN GLARGINE [LANTus] (100 UNITS/ML) SYG SC (21:29)
[2018-03-14 00:04] LABS: B2 GLYCOPROTEIN I AB (IGA) <9 SAU (< OR = 20); B2 GLYCOPROTEIN I AB (IGG) <9 SGU (< OR = 20); B2 GLYCOPROTEIN I AB (IGM) <9 SMU (< OR = 20)
[2018-03-14] MEDS: ACCUCHECK AT 2AM (Patients on SS coverage) XX (01:56)
[2018-03-14] MEDS: PANTOPRAZOLE (EC) 40 MG TAB PO (05:17)
[2018-03-14 06:10] LABS: ADD MAN DIFF? NO
[2018-03-14 06:19] LABS: BASOPHILS % 0.4 % (0.0-2.0); EOSINOPHILS # 0.4 10^3/ul (0.0-0.5); EOSINOPHILS % 5.1 % (0.0-7.0); HEMATOCRIT 38.7 % (42.0-52.0); LYMPHOCYTES % 26.1 % (15.0-51.0); MEAN CORPUSCULAR HEMOGLOBIN 24.4 pg (29.0-33.0); MEAN CORPUSCULAR VOLUME 78.7 fl (82.0-101.0); MEAN PLATELET VOLUME 10.1 fl (7.4-10.4); MONOCYTE # 0.6 10^3/ul (0.3-0.9); MONOCYTES % 7.5 % (0.0-11.0); NEUTROPHIL # 4.6 10^3/ul (1.6-7.5); NEUTROPHILS % 60.8 % (39.0-77.0); PLATELET COUNT 286 10^3/UL (140-415); RED BLOOD COUNT 4.92 10^6/ul (4.70-6.10); RED CELL DISTRIBUTION WIDTH 13.2 % (11.5-14.5)
[2018-03-14 06:19] LABS: WHITE BLOOD COUNT 7.6 10^3/ul (4.8-10.8)
[2018-03-14 06:52] LABS: ANION GAP 13 (8-16); BLOOD UREA NITROGEN 13 mg/dl (7-20); CALCIUM 9.4 mg/dl (8.4-10.2); CARBON DIOXIDE 28 mmol/L (21-31); CHLORIDE 104 mmol/L (97-110); CREATININE 1.12 mg/dl (0.61-1.24); GLUCOSE 118 mg/dl (70-220); POTASSIUM 4.8 mmol/L (3.5-5.1); SODIUM 140 mmol/L (135-144)
[2018-03-14 06:55] LABS: PARTIAL THROMBOPLASTIN TIME 82.3 Sec (25.0-35.0)
[2018-03-14] MEDS: INSULIN ASPART [NOVOLOG] 3 ML PEN SC ×7 (08:00→21:00)
[2018-03-14] MEDS: FERROUS SULFATE (EC) 325 MG TAB PO (08:32)
[2018-03-14] MEDS: HEPARIN 25000 UNITS/250 ML 250 ML IV (08:32)
[2018-03-14] MEDS: FISH OIL 1,000 MG CAP PO ×2 (08:32→21:38)
[2018-03-14] MEDS: HYDROCORTISONE 0.5% 28.35 GM OINT TOP (08:32)
[2018-03-14] MEDS: APIXABAN 5 MG TABLET PO ×2 (13:00→21:38)
[2018-03-14] MEDS: INSULIN GLARGINE [LANTus] (100 UNITS/ML) SYG SC (22:41)
[2018-03-14 23:27] LABS: HEXAGONAL PHASE CONFIRMATION NEGATIVE (NEGATIVE)
[2018-03-15] MEDS: ACCUCHECK AT 2AM (Patients on SS coverage) XX (02:00)
[2018-03-15] MEDS: PANTOPRAZOLE (EC) 40 MG TAB PO ×2 (06:00)
[2018-03-15 06:40] LABS: PARTIAL THROMBOPLASTIN TIME 35.4 Sec (25.0-35.0)
[2018-03-15] MEDS: INSULIN ASPART [NOVOLOG] 3 ML PEN SC ×7 (07:55→21:00)
[2018-03-15] MEDS: FISH OIL 1,000 MG CAP PO ×2 (08:32→20:51)
[2018-03-15] MEDS: FERROUS SULFATE (EC) 325 MG TAB PO (08:32)
[2018-03-15] MEDS: APIXABAN 5 MG TABLET PO ×2 (08:33→20:51)
[2018-03-15 11:55] LABS: CHOL/HDL RATIO 6.6 RATIO; HDL CHOLESTEROL 30 mg/dl (27-67); LDL CHOLESTEROL,CALCULATED 151 mg/dl; TRIGLYCERIDES 86 mg/dl (0-149)
[2018-03-15 11:55] LABS: CHOLESTEROL 198 mg/dl (100-200)
[2018-03-15] MEDS ORDERED: INSULIN GLARGINE [LANTus] (100 UNITS/ML) SYG SC (20:00)
[2018-03-15] MEDS: ERGOCALCIFEROL 50,000 UNIT CAP PO (21:41)
[2018-03-16 20:46] LABS: CARDIOLIPIN AB - IGA <11 APL; CARDIOLIPIN AB - IGG <14 GPL; CARDIOLIPIN AB - IGM <12 MPL
== END 2018-03-15 22:18 | DRG 176 ==
LOC: ICU 05:04 → 6WM 03-12 14:01
PROVIDERS: Internal Medicine
DX: I26.99 Other pulmonary embolism without acute cor pulmonale (principal); I82.403 Acute embolism and thrombosis of unspecified deep veins of lower extremity, bilateral; I69.351 Hemiplegia and hemiparesis following cerebral infarction affecting right dominant side; D68.59 Other primary thrombophilia; I42.9 Cardiomyopathy, unspecified; I10 Essential (primary) hypertension; E11.65 Type 2 diabetes mellitus with hyperglycemia; E78.5 Hyperlipidemia, unspecified; D50.9 Iron deficiency anemia, unspecified; R42 Dizziness and giddiness
CPT/HCPCS: 70450; 80048; 80061; 81240; 82550; 82553; 82962; 83735; 83890; 84100; 84484; 85025; 85610; 85613; 85730; 86146; 86147; 93005; 93306; 93308; 93970; 97116; 97162; 97530

== ENCOUNTER 2018-03-15 22:14 | Inpatient (IN) | payer MEDICAID ==
[2018-03-15] MEDS: INSULIN GLARGINE [LANTus] (100 UNITS/ML) SYG SC (23:32)
[2018-03-15 23:36] LABS: ADD UMIC NO; UR ASCORBIC ACID 20 mg/dL (NEGATIVE); UR BILIRUBIN (Dip) NEGATIVE (NEGATIVE); UR BLOOD (Dip) NEGATIVE (NEGATIVE); UR CLARITY CLEAR (CLEAR); UR COLOR YELLOW (YELLOW); UR GLUCOSE (Dip) NEGATIVE (NEGATIVE); UR KETONES (Dip) NEGATIVE (NEGATIVE); UR LEUKOCYTE ESTERASE (Dip) NEGATIVE Leu/ul (NEGATIVE); UR NITRITE (Dip) NEGATIVE (NEGATIVE); UR SPECIFIC GRAVITY (Dip) 1.015 (1.003-1.030); UR TOTAL PROTEIN (Dip) NEGATIVE (NEGATIVE); UR UROBILINOGEN (Dip) NEGATIVE (NEGATIVE)
[2018-03-15] MEDS ORDERED: ONDANSETRON 4 MG INJ IV (23:45)
[2018-03-15] MEDS ORDERED: INSULIN GLARGINE [LANTus] (100 UNITS/ML) SYG SC (23:45)
[2018-03-15] MEDS ORDERED: HYDROCORTISONE 0.5% 28.35 GM OINT TOP (23:45)
[2018-03-15] MEDS ORDERED: GLUCAGON 1 MG INJ IM (23:45)
[2018-03-15] MEDS ORDERED: POLYETHYLENE GLYCOL 17 GM PACKET PO (23:45)
[2018-03-15] MEDS ORDERED: DEXTROSE 50% 50 ML SYRINGE IV ×2 (23:45)
[2018-03-15] MEDS ORDERED: GLUCOSE GEL 15 GRAM TUBE BUCCAL (23:45)
[2018-03-15] MEDS ORDERED: IPRATROPIUM (NEB) 0.5 MG/2.5 ML AMP NEB (23:45)
[2018-03-15] MEDS ORDERED: GLUCOSE GEL 15 GRAM TUBE PO ×2 (23:45)
[2018-03-16] MEDS: ACCUCHECK AT 2AM (Patients on SS coverage) XX (02:00)
[2018-03-16] MEDS ORDERED: LACTULOSE 30ML CUP PO (05:00)
[2018-03-16] MEDS ORDERED: MAGNESIUM HYDROXIDE 30ML CUP PO (05:00)
[2018-03-16] MEDS ORDERED: BISACODYL 10 MG SUPP PR (05:00)
[2018-03-16] MEDS: PANTOPRAZOLE (EC) 40 MG TAB PO (06:00)
[2018-03-16 06:45] LABS: ADD MAN DIFF? NO
[2018-03-16 06:55] LABS: WHITE BLOOD COUNT 7.3 10^3/ul (4.8-10.8)
[2018-03-16 06:55] LABS: BASOPHILS % 0.4 % (0.0-2.0); EOSINOPHILS # 0.3 10^3/ul (0.0-0.5); EOSINOPHILS % 4.4 % (0.0-7.0); HEMATOCRIT 37.4 % (42.0-52.0); HEMOGLOBIN 11.7 g/dl (14.0-18.0); LYMPHOCYTES # 1.9 10^3/ul (0.8-2.9); LYMPHOCYTES % 25.8 % (15.0-51.0); MEAN CORPUSCULAR HEMOGLOBIN 24.7 pg (29.0-33.0); MEAN CORPUSCULAR HGB CONC 31.3 g/dl (32.0-37.0); MEAN CORPUSCULAR VOLUME 78.9 fl (82.0-101.0); MEAN PLATELET VOLUME 9.7 fl (7.4-10.4); MONOCYTE # 0.5 10^3/ul (0.3-0.9); MONOCYTES % 6.8 % (0.0-11.0); NEUTROPHIL # 4.5 10^3/ul (1.6-7.5); NEUTROPHILS % 62.3 % (39.0-77.0); PLATELET COUNT 277 10^3/UL (140-415); RED BLOOD COUNT 4.74 10^6/ul (4.70-6.10); RED CELL DISTRIBUTION WIDTH 13.1 % (11.5-14.5)
[2018-03-16 07:13] LABS: ALANINE AMINOTRANSFERASE 57 IU/L (13-69); ALBUMIN 3.5 g/dl (3.3-4.9); ALBUMIN/GLOBULIN RATIO 0.87; ALKALINE PHOSPHATASE 85 IU/L (42-121); ANION GAP 13 (8-16); ASPARTATE AMINO TRANSFERASE 49 IU/L (15-46); BILIRUBIN,INDIRECT 0.3 mg/dl (0-1.1); BILIRUBIN,TOTAL 0.3 mg/dl (0.2-1.3); BLOOD UREA NITROGEN 12 mg/dl (7-20); CALCIUM 9.3 mg/dl (8.4-10.2); CARBON DIOXIDE 29 mmol/L (21-31); CHLORIDE 102 mmol/L (97-110); CREATININE 1.15 mg/dl (0.61-1.24); GLUCOSE 166 mg/dl (70-220); POTASSIUM 4.6 mmol/L (3.5-5.1); SODIUM 139 mmol/L (135-144); TOTAL PROTEIN 7.5 g/dl (6.1-8.1)
[2018-03-16] MEDS: INSULIN ASPART [NOVOLOG] 3 ML PEN SC ×6 (07:35→17:23)
[2018-03-16] MEDS: APIXABAN 5 MG TABLET PO ×2 (08:29→20:39)
[2018-03-16] MEDS: FISH OIL 1,000 MG CAP PO ×2 (08:29→20:39)
[2018-03-16] MEDS: FERROUS SULFATE (EC) 325 MG TAB PO (08:29)
[2018-03-16] MEDS: EZETIMIBE 10 MG TAB PO (14:00)
[2018-03-16] MEDS: INSULIN GLARGINE [LANTus] (100 UNITS/ML) SYG SC (20:38)
[2018-03-17] MEDS: PANTOPRAZOLE (EC) 40 MG TAB PO (06:00)
[2018-03-17] MEDS: APIXABAN 5 MG TABLET PO ×2 (08:15→21:37)
[2018-03-17] MEDS: FERROUS SULFATE (EC) 325 MG TAB PO (08:15)
[2018-03-17] MEDS: FISH OIL 1,000 MG CAP PO ×2 (08:15→21:36)
[2018-03-17] MEDS: INSULIN ASPART [NOVOLOG] 3 ML PEN SC ×3 (08:17→17:25)
[2018-03-17] MEDS: EZETIMIBE 10 MG TAB PO (08:23)
[2018-03-17] MEDS: INSULIN GLARGINE [LANTus] (100 UNITS/ML) SYG SC (22:56)
[2018-03-18] MEDS: PANTOPRAZOLE (EC) 40 MG TAB PO ×2 (05:48→07:34)
[2018-03-18] MEDS: EZETIMIBE 10 MG TAB PO (09:00)
[2018-03-18] MEDS: INSULIN ASPART [NOVOLOG] 3 ML PEN SC ×3 (09:08→17:18)
[2018-03-18] MEDS: FISH OIL 1,000 MG CAP PO ×2 (09:12→21:29)
[2018-03-18] MEDS: APIXABAN 5 MG TABLET PO ×2 (09:13→21:29)
[2018-03-18] MEDS: FERROUS SULFATE (EC) 325 MG TAB PO (09:13)
[2018-03-18] MEDS: LIDOCAINE 5% PATCH TD (19:14)
[2018-03-18] MEDS: IBUPROFEN 400 MG TAB PO (19:32)
[2018-03-18] MEDS ORDERED: INSULIN GLARGINE [LANTus] (100 UNITS/ML) SYG SC (20:00)
[2018-03-18] MEDS: traMADol 50 MG TAB PO (21:30)
[2018-03-18] MEDS: INSULIN GLARGINE [LANTus] (100 UNITS/ML) SYG SC (21:42)
[2018-03-19] MEDS: IBUPROFEN 400 MG TAB PO ×4 (02:31→20:40)
[2018-03-19] MEDS: traMADol 50 MG TAB PO ×4 (03:40→22:58)
[2018-03-19] MEDS: FISH OIL 1,000 MG CAP PO ×2 (08:44→20:40)
[2018-03-19] MEDS: APIXABAN 5 MG TABLET PO ×2 (08:44→20:41)
[2018-03-19] MEDS: FERROUS SULFATE (EC) 325 MG TAB PO (08:44)
[2018-03-19] MEDS: EZETIMIBE 10 MG TAB PO (08:48)
[2018-03-19] MEDS: INSULIN ASPART [NOVOLOG] 3 ML PEN SC ×3 (08:50→16:59)
[2018-03-19] MEDS: BACLOFEN 10 MG TAB PO ×2 (11:54→20:40)
[2018-03-19] MEDS: ERGOCALCIFEROL 50,000 UNIT CAP PO (14:30)
[2018-03-19] MEDS: CALCIUM CARBONATE 500 MG CHEW TAB PO (18:52)
[2018-03-19] MEDS: LIDOCAINE 5% PATCH TD (20:43)
[2018-03-19] MEDS: PANTOPRAZOLE (EC) 40 MG TAB PO (21:36)
[2018-03-19] MEDS: INSULIN GLARGINE [LANTus] (100 UNITS/ML) SYG SC (21:46)
[2018-03-20] MEDS: IBUPROFEN 400 MG TAB PO ×3 (02:44→20:03)
[2018-03-20] MEDS: traMADol 50 MG TAB PO ×3 (05:02→20:53)
[2018-03-20] MEDS: PANTOPRAZOLE (EC) 40 MG TAB PO (05:03)
[2018-03-20] MEDS: INSULIN ASPART [NOVOLOG] 3 ML PEN SC ×3 (07:48→17:14)
[2018-03-20] MEDS: APIXABAN 5 MG TABLET PO ×2 (08:48→20:02)
[2018-03-20] MEDS: FERROUS SULFATE (EC) 325 MG TAB PO (08:48)
[2018-03-20] MEDS: FISH OIL 1,000 MG CAP PO ×2 (08:48→20:02)
[2018-03-20] MEDS: BACLOFEN 10 MG TAB PO ×3 (08:48→20:53)
[2018-03-20] MEDS: EZETIMIBE 10 MG TAB PO (08:55)
[2018-03-20] MEDS: LIDOCAINE 5% PATCH TD (20:01)
[2018-03-20] MEDS: INSULIN GLARGINE [LANTus] (100 UNITS/ML) SYG SC (20:13)
[2018-03-20] MEDS: CALCIUM CARBONATE 500 MG CHEW TAB PO (20:28)
[2018-03-21] MEDS: PANTOPRAZOLE (EC) 40 MG TAB PO (05:25)
[2018-03-21] MEDS: INSULIN ASPART [NOVOLOG] 3 ML PEN SC ×3 (07:45→17:28)
[2018-03-21] MEDS: FISH OIL 1,000 MG CAP PO ×2 (08:56→21:09)
[2018-03-21] MEDS: APIXABAN 5 MG TABLET PO ×2 (08:57→21:09)
[2018-03-21] MEDS: FERROUS SULFATE (EC) 325 MG TAB PO (08:57)
[2018-03-21] MEDS: EZETIMIBE 10 MG TAB PO (08:59)
[2018-03-21] MEDS: BACLOFEN 10 MG TAB PO ×3 (08:59→21:00)
[2018-03-21 14:07] LABS: ADD MAN DIFF? NO
[2018-03-21 14:09] LABS: BASOPHILS % 0.4 % (0.0-2.0); EOSINOPHILS # 0.2 10^3/ul (0.0-0.5); EOSINOPHILS % 2.2 % (0.0-7.0); HEMATOCRIT 36.6 % (42.0-52.0); HEMOGLOBIN 11.3 g/dl (14.0-18.0); LYMPHOCYTES # 1.3 10^3/ul (0.8-2.9); LYMPHOCYTES % 12.5 % (15.0-51.0); MEAN CORPUSCULAR HEMOGLOBIN 24.3 pg (29.0-33.0); MEAN CORPUSCULAR HGB CONC 30.9 g/dl (32.0-37.0); MEAN CORPUSCULAR VOLUME 78.7 fl (82.0-101.0); MEAN PLATELET VOLUME 9.8 fl (7.4-10.4); MONOCYTE # 0.9 10^3/ul (0.3-0.9); NEUTROPHIL # 8.1 10^3/ul (1.6-7.5); NEUTROPHILS % 76.5 % (39.0-77.0); PLATELET COUNT 321 10^3/UL (140-415); RED BLOOD COUNT 4.65 10^6/ul (4.70-6.10); RED CELL DISTRIBUTION WIDTH 13.5 % (11.5-14.5)
[2018-03-21 14:09] LABS: WHITE BLOOD COUNT 10.6 10^3/ul (4.8-10.8)
[2018-03-21 14:31] LABS: ANION GAP 14 (8-16); BLOOD UREA NITROGEN 16 mg/dl (7-20); CALCIUM 9.7 mg/dl (8.4-10.2); CARBON DIOXIDE 30 mmol/L (21-31); CHLORIDE 99 mmol/L (97-110); GLUCOSE 140 mg/dl (70-220); POTASSIUM 5.2 mmol/L (3.5-5.1); SODIUM 138 mmol/L (135-144)
[2018-03-21] MEDS: LIDOCAINE 5% PATCH TD (21:09)
[2018-03-21] MEDS: INSULIN GLARGINE [LANTus] (100 UNITS/ML) SYG SC (21:10)
[2018-03-21] MEDS: NA POLYST SULFON 15 GM/60 ML BTL PO (21:11)
[2018-03-22] MEDS: PANTOPRAZOLE (EC) 40 MG TAB PO (06:00)
[2018-03-22] MEDS: INSULIN ASPART [NOVOLOG] 3 ML PEN SC (08:11)
[2018-03-22 08:16] LABS: ANION GAP 15 (8-16); BLOOD UREA NITROGEN 15 mg/dl (7-20); CALCIUM 9.7 mg/dl (8.4-10.2); CARBON DIOXIDE 29 mmol/L (21-31); CHLORIDE 99 mmol/L (97-110); CREATININE 1.08 mg/dl (0.61-1.24); GLUCOSE 111 mg/dl (70-220); POTASSIUM 4.4 mmol/L (3.5-5.1); SODIUM 139 mmol/L (135-144)
[2018-03-22] MEDS: BACLOFEN 10 MG TAB PO (09:00)
[2018-03-22] MEDS: EZETIMIBE 10 MG TAB PO (09:00)
[2018-03-22] MEDS: FISH OIL 1,000 MG CAP PO (09:22)
[2018-03-22] MEDS: APIXABAN 5 MG TABLET PO (09:22)
[2018-03-22] MEDS: FERROUS SULFATE (EC) 325 MG TAB PO (09:23)
== END 2018-03-22 11:35 | disposition home health service (06) | DRG 56 ==
LOC: VRC 22:14
DX: I69.322 Dysarthria following cerebral infarction (principal); I26.99 Other pulmonary embolism without acute cor pulmonale; I82.433 Acute embolism and thrombosis of popliteal vein, bilateral; R47.1 Dysarthria and anarthria; E55.9 Vitamin D deficiency, unspecified; I10 Essential (primary) hypertension; E78.4 Other hyperlipidemia; E11.65 Type 2 diabetes mellitus with hyperglycemia; Z91.14 Patient's other noncompliance with medication regimen; I69.391 Dysphagia following cerebral infarction; R13.10 Dysphagia, unspecified; M62.830 Muscle spasm of back; M94.0 Chondrocostal junction syndrome [Tietze]; D50.9 Iron deficiency anemia, unspecified
CPT/HCPCS: 71045; 80048; 80053; 81003; 82962; 85025; 87081; 87086; 92507; 92523; 97110; 97112; 97116; 97163; 97167; 97530; 97535; 97542